=== PATIENT | male | born 1995 | race Caucasian/White ===

== ENCOUNTER → 2017-05-26 | Outpatient (CLI) | payer BC ==
--- NOTE | 2017-05-27 16:05 | PULMONARY FUNCTION TEST ---
Spirometry is normal. Repeat study done following bronchodilator showed mild but not significant improvement in function. Flow volume loops on expiration were normal. There was mild flattening on the inspiratory portion of the flow volume curve. This may be due to patient technique. Cannot entirely exclude a variable extrathoracic obstruction. Lung volumes showed increased FRC and RV suggesting some air trapping.
== END | disposition home or self-care (01) ==
LOC: C.RC 09:12
PROVIDERS: ATTEND Family Medicine
DX: R06.02 Shortness of breath (principal); R05 Cough